=== PATIENT | male | born 1955 | race Two or more races ===

== ENCOUNTER → 2022-01-21 | Day surgery (SDC) | payer MEDICARE, MEDICAID ==
[~2022-01-21] VITALS: Ht 182.9 cm; Wt 63.5 kg
[~2022-01-21] MED LIST: DexAMETHasone SOD PHOS 10MG/1ML VIAL INJ ONE; HYDROmorphone HCL 2 MG/ML VL/or syr IV PRN; KETOROLAC TROMETH 30 MG/ML 1ML VIAL IV ONE; LISI20TA28 PO; METOCLOPRAMIDE HCL 5MG/ml INJ 2ml VIAL IV PRN; MIDAZOLAM HCL 2MG/2ML 2ml VIAL (1mg/ml) ONE; MORPHINE SULFATE 4 MG/ML SYR/VIAL IV PRN; ONDANSETRON HCL 4 MG/2 ML VIAL ONE; PROPOFOL 10 MG/ML 20 ML IV ONE; SODIUM CHLORIDE LOCK 10 ML ONE; ceFAZolin 1GM/50ML 100 ML IV ONE; fentaNYL CITRATE 100 MCG/2 ML VL ONE
[2022-01-21 12:15] VITALS: BP 145/65
== END | disposition home or self-care (01) ==
LOC: SUR 08:05
PROVIDERS: ATTEND Orthopaedic Surgery Sports Medicine
DX: M67.432 Ganglion, left wrist (principal); I10 Essential (primary) hypertension; Z79.899 Other long term (current) drug therapy
CPT/HCPCS: 25111; 88305; J0690; J1100; J2250; J2405; J2704; J3010; U0003